=== PATIENT | female | born 1965 | race Caucasian/White ===

== ENCOUNTER 2018-01-26 11:15 | Emergency (ER) | payer OTHER ==
[2018-01-26 11:20] VITALS: BMI 40.0
[2018-01-26 12:45] LABS: URINE APPEARANCE CLEAR; URINE BILIRUBIN NEGATIVE (<2.0 mg/dL); URINE COLOR YELLOW; URINE GLUCOSE (UA) NEGATIVE (NEGATIVE); URINE KETONE TRACE (NEGATIVE); URINE LEUK ESTERASE NEGATIVE (NEGATIVE); URINE NITRITE NEGATIVE (NEGATIVE); URINE PROTEIN NEGATIVE (NEGATIVE); URINE UROBILINOGEN NEGATIVE mg/dL (0.2-1.0)
[2018-01-26 12:57] LABS: BASO % 0.7 % (0-2.0); EOS % 0.7 % (0-4.5); HEMATOCRIT 44.4 % (32.4-45.2); HEMOGLOBIN 14.9 GM/dL (10.7-15.3); LYMPH % 15.9 % (8-40); MCH 29.9 pg (25.7-33.7); MCHC 33.5 g/dl (32.0-36.0); MEAN CELL VOLUME 89.1 fl (80-96); MEAN PLT VOLUME 9.3 fl (7.5-11.1); MONO % 7.2 % (3.8-10.2); NEUT % 75.5 % (42.8-82.8); PLATELET COUNT 253 K/MM3 (134-434); RBC 4.98 M/mm3 (3.60-5.2); RDW 12.9 % (11.6-15.6); WHITE BLOOD COUNT 8.8 K/mm3 (4.0-10.0)
[2018-01-26 13:29] LABS: ALBUMIN 4.1 g/dl (3.4-5.0); ALK PHOS 88 U/L (45-117); ANION GAP 6 MMOL/L (8-16); BILIRUBIN,TOTAL 0.6 mg/dL (0.2-1); BLOOD UREA NITROGEN 14 mg/dL (7-18); CALCIUM 9.7 mg/dL (8.5-10.1); CHLORIDE 99 mmol/L (98-107); CO2 33 mmol/L (21-32); GLUCOSE,RANDOM 96 mg/dL (74-106); LIPASE 176 U/L (73-393); MAGNESIUM 2.2 mg/dL (1.8-2.4); POTASSIUM 3.6 mmol/L (3.5-5.1); SGOT/AST 49 U/L (15-37); SGPT/ALT 82 U/L (13-61); SODIUM 138 mmol/L (136-145); TOT PROT 8.2 g/dl (6.4-8.2)
--- NOTE | 2018-01-26 13:31 | PDOC ---
History of Present Illness - General Chief Complaint: Pain Stated Complaint: ABD PAIN Time Seen by Provider: 01/26/18 11:54 History Source: Patient Exam Limitations: No Limitations - History of Present Illness Travel History: No Initial Comments: 01/26/18 12:33 52-year-old female presents to ED with complaints of right upper quadrant sharp intermittent pain and increased gas production over the past month intermittently. Patient states went to her PCP who recommended she change her diet to bland which she states has but his sugar by the smallest gas producing foods and so has been on Pepto-Bismol for the past 2 days. Patient states minimal improvement with Pepto-Bismol and continue to take her Prilosec which is prescribed by her [facility] enterologist. Patient states this morning he noted dark stool and so came to the ER for further evaluation. Patient denies fever, chills, chest pain, shortness of breath, abdominal distention, back pain, rash. Patient does state history of also PE with IVC filter placement in 2003. Patient states history of cholecystectomy in 1999 Timing/Duration: reports: intermittent Quality: reports: sharpness (cramping) Abdominal Pain Onset Location: reports: RUQ Pain Radiation: reports: no radiation Activities at Onset: reports: none Aggravating Factors: improves with: Eating Alleviating Factors: improves with: Belching, Passing Gas, Change in Position Past History - Travel Traveled outside of the country in the last 30 days: No - Past Medical History Allergies/Adverse Reactions: Allergies Allergy/AdvReac Type Severity Reaction Status Date / Time No Known Allergies Allergy Verified 01/26/18 11:21 Home Medications: Ambulatory Orders Azithromycin 500 mg PO DAILY 01/26/18 Hydrochlorothiazide [Hctz -] 12.5 mg PO DAILY 01/26/18 Nebivolol HCl [Bystolic] 2.5 mg PO ONCE 01/26/18 Omeprazole 20 mg PO PRN 01/26/18 COPD: No GI Disorders: Yes HTN: Yes Other medical history: PE - Surgical History Cholecystectomy: Yes (1999) - Suicide/Smoking/Psychosocial Hx Smoking History: Never smoked Patient Lives Alone: No Abd/GI Specific PMHX - Complaint Specific PMHX Colitis: No Diverticulitis: No GERD: Yes Review of Systems - Review of Systems Able to Perform ROS?: No Constitutional: No: Symptoms Reported HEENTM: No: Symptoms Reported Respiratory: No: Symptoms reported Cardiac (ROS): No: Symptoms Reported ABD/GI: Yes: Abdominal cramping : No: Symptoms Reported Musculoskeletal: No: Symptoms Reported Integumentary: No: Symptoms Reported Neurological: No: Symptoms reported *Physical Exam - Vital Signs Last Vital Signs Temp Pulse Resp BP Pulse Ox 98 F 99 H 18 145/94 96 01/26/18 11:17 01/26/18 11:17 01/26/18 11:17 01/26/18 11:17 01/26/18 11:17 - Physical Exam General Appearance: Yes: Nourished, Appropriately Dressed. No: Apparent Distress HEENT: negative: Pale Conjunctivae Neck: positive: Normal Thyroid Respiratory/Chest: positive: Lungs Clear, Normal Breath Sounds. negative: Respiratory Distress, Accessory Muscle Use Cardiovascular: positive: Regular Rhythm, Regular Rate. negative: Murmur Gastrointestinal/Abdominal: positive: Soft, Increased Bowel Sounds. negative: Distended, Guarding, Rebound, Tenderness Rectal Exam: positive: heme negative stool. negative: hemorrhoids Musculoskeletal: negative: CVA Tenderness Extremity: negative: Pedal Edema Integumentary: positive: Normal Color, Warm, Moist Neurologic: positive: Motor Strength 5/5 (ambulatory) ED Treatment Course - LABORATORY CBC & Chemistry Diagram: 01/26/18 12:40 01/26/18 12:40 - ADDITIONAL ORDERS Additional order review: Laboratory Results 01/26/18 01/26/18 12:35 12:29 Urine Color Yellow Urine Appearance Clear Urine pH 6.0 Ur Specific [place] 1.014 Urine Protein Negative Urine Glucose (UA) Negative Urine Ketones Trace H Urine Blood Negative Urine Nitrite Negative Urine Bilirubin Negative Urine Urobilinogen Negative Ur Leukocyte Esterase Negative Stool Occult Blood Negative 01/26/18 12:40 RBC 4.98 MCV 89.1 MCHC 33.5 RDW 12.9 MPV 9.3 Neutrophils % 75.5 Lymphocytes % 15.9 Monocytes % 7.2 Eosinophils % 0.7 Basophils % 0.7 - RADIOLOGY Radiology Studies Ordered: Category Date Time Status ABDOMEN & PELVIS CT WITH CONTR [CT] Stat CT Scan 01/26/18 12:25 Ordered Medical Decision Making - Medical Decision Making 01/26/18 13:36 Patient completed right upper quadrant pain described as sharp and intermittent and constant gurgling sounds in the right upper quadrant. Patient states this changed her diet to a bland warm has a follow-up appointment with a commissions manager next week but now that she passed dark stool and symptoms continued she decided to come to the ER. Patient has no other complaints at this time. Patient concerning for choledocholithiasis, abnormal bile production , inflammatory versus infectious process, UTI. Patient ordered for labs, urine, stool for guaiac testing, and abdominal CT with by mouth IV contrast. 01/26/18 13:38 Laboratory Tests 01/26/18 01/26/18 01/26/18 12:29 12:35 12:40 WBC 8.8 Hgb 14.9 Hct 44.4 Absolute Neuts (auto) 6.6 Neutrophils % 75.5 Sodium Potassium Chloride Carbon Dioxide Anion Gap BUN Creatinine Random Glucose Calcium Magnesium Total Bilirubin AST ALT Lipase Urine Ketones Trace H Urine Nitrite Negative Ur Leukocyte Esterase Negative Stool Occult Blood Negative 01/26/18 12:40 WBC Hgb Hct Absolute Neuts (auto) Neutrophils % Sodium 138 Potassium 3.6 Chloride 99 Carbon Dioxide 33 H Anion Gap 6 L BUN 14 Creatinine 1.0 Random Glucose 96 Calcium 9.7 Magnesium 2.2 Total Bilirubin 0.6 AST 49 H ALT 82 H Lipase 176 Urine Ketones Urine Nitrite Ur Leukocyte Esterase Stool Occult Blood *DC/Admit/Observation/Transfer Diagnosis at time of Disposition: Ovarian mass, left, Rib lesion - Discharge Dispostion Disposition: HOME Condition at time of disposition: Good - Referrals Referrals: Jennifer Coats MD [Primary Care Provider] - - Patient Instructions Printed Discharge Instructions: DI for Abdominal Pain-Adult Additional Instructions: Please follow-up with [employer] CL[employer] to discuss today's finding on CT along with speaking with your primary care doctor to obtain a prescription for bone scan. Otherwise also I recommend to follow-up with your commissions manager in regards to abdominal pain and excessive gas production. Any questions or concerns that I may assist to later on please do not hesitate to contact me here in the emergency room - Post Discharge Activity
[2018-01-26 19:08] VITALS: BP 148/95; PULSE 82; TEMP 98.7
== END 2018-01-26 19:09 | disposition home or self-care (01) ==
LOC: JER 11:15
DX: N83.9 Noninflammatory disorder of ovary, fallopian tube and broad ligament, unspecified (principal); M89.9 Disorder of bone, unspecified; I10 Essential (primary) hypertension; K21.9 Gastro-esophageal reflux disease without esophagitis; Z86.711 Personal history of pulmonary embolism
CPT/HCPCS: 36415; 74177-TC; 80053; 81003; 82272; 83690; 83735; 85025; 99282-25